=== PATIENT | female | born 1935 | race African-American/Black ===

== ENCOUNTER → 2019-05-06 | Outpatient (CLI) | payer MEDICARE, OTHER ==
[~2019-05-06] MED LIST: AMOXICILLIN 25250 M1 PO; COUMADIN 5 MG TA5 M1 PO; LOVENOX SC; NOHOMEMEDICATIONS
== END ==
LOC: M.RAD 14:01
DX: M25.861 Other specified joint disorders, right knee (principal)

== ENCOUNTER → 2019-09-03 | Outpatient (CLI) | payer MEDICARE, OTHER | LOC: M.RAD 14:30 | DX: T84.84XA Pain due to internal orthopedic prosthetic devices, implants and grafts, initial encounter (principal); G89.18 Other acute postprocedural pain; Z96.652 Presence of left artificial knee joint; Y92.89 Other specified places as the place of occurrence of the external cause ==

== ENCOUNTER → 2019-09-17 | Outpatient (CLI) | payer MEDICARE, OTHER ==
[~2019-09-17] MED LIST changes: +CALCIUM 600 MG1 EAC2 PO; +NORVASC5 MG PO; +XALATAN2.5 ML OPHTHALMIC
== END ==
LOC: M.MRI 07:58
DX: S83.231A Complex tear of medial meniscus, current injury, right knee, initial encounter (principal); M17.11 Unilateral primary osteoarthritis, right knee; M71.21 Synovial cyst of popliteal space [Baker], right knee; M25.461 Effusion, right knee; X58.XXXA Exposure to other specified factors, initial encounter; Y93.89 Activity, other specified; Y92.89 Other specified places as the place of occurrence of the external cause; Y99.8 Other external cause status

== ENCOUNTER 2019-10-06 07:17 | Inpatient (IN) | payer MEDICARE, OTHER ==
[2019-09-24 09:12] LABS: URINE BILIRUBIN NEGATIVE (Negative); URINE BLOOD 1+ (Negative); URINE CLARITY CLEAR; URINE COLOR YELLOW; URINE GLUCOSE-RANDOM NEGATIVE (Negative); URINE KETONES NEGATIVE (Negative); URINE LEUKOCYTES-REFLEX NEGATIVE (Negative); URINE NITRITE-REFLEX NEGATIVE (Negative); URINE PROTEIN NEGATIVE (Negative); URINE SPECIFIC GRAVITY 1.015 (1.005-1.030); URINE UROBILINOGEN 0.2 E.U./dl (0.2-1.0)
[2019-09-24 09:14] LABS: HEMOGLOBIN 12.2 gm/dL (12.0-15.0); MCHC 32.2 g/dL (28.0-37.0); MCV 74.7 fL (80.0-100.0); MPV 7.6 fl. (7.2-11.1); RBC 5.09 mil/uL (4.20-5.00); RDW-CV 14.9 % (10.5-14.5)
[2019-09-24 09:19] LABS: BACTERIA-REFLEX 1-9 Few /HPF (None Seen); CASTS None Seen /LPF (None Seen); CRYSTALS None Seen /LPF (None Seen); MUCUS 0-3 Light strn/LPF (None Seen); SQUAMOUS 0-3 Few /LPF (0-3); URINE RBC 3-10 Few /HPF (0-2); URINE WBC-REFLEX 0-5 Rare /HPF (0-5)
[2019-09-24 09:25] LABS: ALBUMIN 3.9 g/dL (3.4-5.0); CALCIUM 9.6 mg/dL (8.5-10.1); CREATININE 1.5 mg/dL (0.6-1.3); POTASSIUM 3.5 mmol/L (3.5-5.1); TOTAL BILIRUBIN 0.7 mg/dL (<0.1-1.0); TOTAL PROTEIN 7.9 g/dL (6.4-8.2)
[~2019-10-06] VITALS: Ht 160 cm; Wt 61.2 kg
--- NOTE | ~2019-10-06 | OP ---
[address] [address] OPERATIVE REPORT Name: DUARTE COSTA Room: [address] M.R.#: [id number] Admission: 10/06/19 Attend Phys: Betsy Grey Discharge: Date of : 39 Report #: [id number] THIS REPORT FOR: //name// cc: Jenna Bal MD, Katrina MD ~ THIS REPORT FOR: //name// CC: Jenna Cochran DATE OF SERVICE: 10/06/2019 PREOPERATIVE DIAGNOSIS: Right knee osteoarthritis. POSTOPERATIVE DIAGNOSIS: Right knee osteoarthritis. PROCEDURE: Right total knee arthroplasty. SURGEON: Melvin Jules II, DO. GARAGE DOOR TECHNICIAN: DARCI Lui. ANESTHESIA: General endotracheal. ESTIMATED BLOOD LOSS: 50 mL. ANTIBIOTICS: Ancef preoperatively. DRAINS: Medium Hemovac. COMPLICATIONS: None. CONDITION OF THE PATIENT: Stable to recovery room. IMPLANTS: Listed in operative record and progress note. BRIEF HISTORY: The patient was seen in the preoperative area. Preoperative H and P was performed. Site was marked, questions were answered. Risks and benefits were discussed with the patient in detail about surgery. The patient wished to proceed, assuming all risks. DESCRIPTION OF PROCEDURE: The patient was taken to the operative suite and placed supine on the operating table and given appropriate anesthesia. A well-padded tourniquet was applied to the upper thigh, which was inflated to 300 mmHg after gravity exsanguination for duration of procedure. The operative knee [facility] [address] [place] [address] OPERATIVE REPORT Name: DUARTE COSTA Room: [address] M.R.#: [id number] Admission: 10/06/19 Attend Phys: Betsy Grey Discharge: Date of : 39 Report #: [id number] was sterilely prepped and draped. Surgery began by midline incision. This was carried down to the subcutaneous tissues. A medial parapatellar arthrotomy was performed and carried down to bone. The patella was then everted and excess soft tissues were removed from around the femur. Femoral cutting block was then applied, checked with drop yrn for rotational alignment, pinned in appropriate position and appropriate cuts were made. A 4-in-1 cutting block was then applied, checked for rotational alignment, pinned in appropriate position and appropriate cuts were made. The tibia was then exposed. Excess meniscus was removed. Retractor was placed on collateral ligaments. Tibial cutting block was then applied, pinned in appropriate position, checked with a drop yrn for rotational alignment and slope and appropriate cut was made. The tibial bone was removed. The tibial base plate was then applied, checked for rotational alignment with the drop yrn and pinned in appropriate position. The femur was then applied and box cut was reamed. This was then trialed with appropriate spacer, which showed excellent fit and fill and excellent stability of knee through all range of motion. The patella was then reamed in appropriate fashion and sized to appropriate size. Three peg holes were drilled. It was then trialed and showed excellent flexion, extension, excellent tracking of the patella within the groove. These trials were then removed. The tibia was punched in appropriate fashion. Bone ends were cleansed with Pulsavac irrigation and cement was mixed and applied to final implants. These were then malleted into position and held the knee in extension and compressed to allow cement to cure. After it cured, excess was removed using a Helm and osteotome. Wound was then copiously irrigated and the final spacer was then malleted into position. Tourniquet was deflated. Hemostasis was obtained with electrocautery. Pain cocktail was injected. PRP gel was sprayed throughout internal aspects of the knee. Medium Hemovac drain was applied. Capsule was closed with #2 FiberWire and #1 Vicryl in figure-of-8 fashion. Skin was closed with 2-0 Vicryl and running 3-0 Monocryl. Dermabond and sterile dressing applied. Timoteo wrap and PolarCare applied. The patient transported to recovery room in stable condition. Counts were correct throughout the procedure. By: 21 Melvin Jules II, DO /nt
[2019-10-06 15:26] VITALS: BP 141/63
--- NOTE | 2019-10-06 15:33 | NUR ---
PT ADMITTED POST OP. PT ORIENTED TO ROOM AND UP TO BATHROOM. PT EDUCATED ON USING CALL LIGHT WHEN NEEDING PAIN MEDS. FALL RISK PRECautions in place. WILL CONTINUE TO MONTIOR.
[2019-10-06 16:00] VITALS: BP 152/58
--- NOTE | 2019-10-06 17:08 | NUR ---
PT REMAINED ALERT AND ORIENTED. PT GIVEN PAIN MEDS ORDERED. PT UP TO COMMODE. FALL RISK PRECAUTIONS IN PLACE. HOURLY ROUNDING COMPLETED. WILL CONTINUE TO MONITOR.
[2019-10-06 19:43] VITALS: BP 146/71
[2019-10-07] VITALS (7 sets, daily range): BP systolic 133–140; BP diastolic 66–73
[2019-10-07 03:53] LABS: HEMATOCRIT 34.1 % (37.0-47.0); HEMOGLOBIN 10.7 gm/dL (12.0-15.0)
--- NOTE | 2019-10-07 05:37 | NUR ---
ASSUMED CARE OF PT 10/06/19 AT APPROX 1930, PT A&OX4, PT ON O2 2L NC, HEMOVAC IN PLACE, PAIN MEDS REQUESTED AND GIVEN ORDERD, ASSESSMENTS AND HOURLY ROUNDINGS COMPLETE, PT USING CPM, WILL CONTINUE TO MONITOR.
[2019-10-07] MEDS ORDERED: PERCOCET PO (07:49)
[2019-10-07] MEDS ORDERED: COLACE 100 MG100 MG PO (07:49)
[2019-10-07] MEDS ORDERED: XARELTO10 MG PO (07:49)
--- NOTE | 2019-10-07 11:40 | NUR ---
CM ASSESSMENT: VISITED WITH PT IN ROOM. PT STATES SHE IS READY TO LEAVE. SHE LIVES WITH HER DTR. SHE HAS A WALKER. SHE IS INDEPENDENT WITH ADLS. SHE STATES SHE HAS NO PREFERENCE FOR HOME HEALTH COMPANY. REFERRAL SENT TO [facility] . RX CALLED IN FOR [facility] $218 NO INSURANCE IS ON FILE.PT NOTIFIED. GIVEN RX
--- NOTE | 2019-10-07 12:19 | NUR ---
PT GIVEN DISCHARGE INFORMATION, CARE NOTES, AND PRESCRIPTIONS. IV REMOVED. PT BELONGINGS GATHERED. PT CPM AND POLAR PACK SENT HOME WITH PATIENT. FALL RISK PRECAUTIONS IN PLACE. HOURLY ROUNDING COMPLETED. PT LEFT VIA WHEELCHAIR WITH NURSING STAFF TO HOME WITH HOME HEALTH.
--- NOTE | 2019-10-07 13:17 | NUR ---
RECIEVED O.T. EVAL AND TX ORDER. WILL DEFER TO P.T. AT THIS TIME. PLEASE ORDER FURTHER O.T. SERVICES IF NEEDED.
--- NOTE | 2019-10-07 13:43 | EKG ---
[place] [address] ELECTROCARDIOGRAM REPORT Name: DUARTE COSTA Room: [address] IN [facility]#: [id number] Admission: 10/06/19 Attend Phys: Betsy Grey Discharge: 10/07/19 Date of : 39 Report #: [id number] THIS REPORT FOR: //name// [facility] Test Date: 2019-09-24 Test Time: 09:45:01 Pat Name: DUARTE COSTA Department: Room: Gender: Acid Strength Inspector: : 1935 Requested By: Melvin Jules Order Number: [id number] Griselda MD: Hua Rand Measurements Intervals Hoffman Rate: 75 P: 58 CO: 159 QRS: 17 QRSD: 78 T: 38 QT: 369 QTc: 413 Interpretive Statements Sinus rhythm Compared to ECG 03/16/2011 21:50:20 Sinus tachycardia no longer present ST (T wave) deviation no longer present Electronically Signed On 09-24-2019 13:16:32 SLOPE HOIST OPERATOR by Hua Rand [email or web address] <ELECTRONICALLY SIGNED> By: Hua Rand MD, [facility] 09/24/19 1316 0945 [id number] Hua Rand MD, [facility] /EPI
--- NOTE | 2019-10-07 15:09 | NUR ---
I have reviewed the documentation by JORJE MADISON from 10/07/19 to 10/07/19 and I concur with it. LEANNA NORWOOD
== END 2019-10-07 12:39 | disposition home health service (06) | DRG 470 ==
LOC: M.PRE 07:17 → M.ORTHSURG 10:01 → M.TBA 10:01 → M.PRE 11:09 → M.ORTHSURG 14:56
PROVIDERS: Orthopaedic Surgery; ADMIT Internal Medicine
PROC: 0SRC0J9 Replacement of Right Knee Joint with Synthetic Substitute, Cemented, Open Approach (ICD-10-PCS; principal; 2019-10-06)
PROC: 3E0T3BZ Introduction of Anesthetic Agent into Peripheral Nerves and Plexi, Percutaneous Approach (ICD-10-PCS; 2019-10-06)
DX: M17.11 Unilateral primary osteoarthritis, right knee (principal); Z96.652 Presence of left artificial knee joint; I10 Essential (primary) hypertension; Z90.710 Acquired absence of both cervix and uterus; Z86.711 Personal history of pulmonary embolism; Z72.89 Other problems related to lifestyle; Z86.718 Personal history of other venous thrombosis and embolism; Z98.42 Cataract extraction status, left eye; Z98.41 Cataract extraction status, right eye; Z88.0 Allergy status to penicillin

== ENCOUNTER → 2019-11-10 | Outpatient (CLI) | payer MEDICARE, OTHER ==
[~2019-11-10] MED LIST changes: +COLACE 100 MG100 MG PO; +PERCOCET PO; +XARELTO10 MG PO
== END ==
LOC: M.RAD 11:14
DX: Z09 Encounter for follow-up examination after completed treatment for conditions other than malignant neoplasm (principal); Z96.651 Presence of right artificial knee joint

== ENCOUNTER → 2019-11-12 | Outpatient (CLI) | payer MEDICARE, OTHER | LOC: M.ULTRA 08:57 | DX: I82.611 Acute embolism and thrombosis of superficial veins of right upper extremity (principal) ==

== ENCOUNTER → 2020-06-27 | Outpatient (CLI) | payer MEDICARE, OTHER | LOC: M.RAD 14:54 | PROVIDERS: ATTEND Family Medicine | DX: Z13.820 Encounter for screening for osteoporosis (principal); N95.9 Unspecified menopausal and perimenopausal disorder ==